=== PATIENT | female | born 1975 | race Hispanic/Latino ===

== ENCOUNTER 2023-03-21 17:03 | Emergency (ER) | payer BC ==
[~2023-03-21] VITALS: Ht 157.5 cm; Wt 81.6 kg
[2023-03-21 17:14] VITALS: O2SAT 100
[2023-03-21] MEDS ORDERED: KETOROLAC TROME10 MG PO (17:34)
[2023-03-21] MEDS ORDERED: METHOCARBAMOL500 MG PO (17:35)
== END 2023-03-21 17:45 | disposition home or self-care (01) ==
LOC: ER 17:21
DX: G44.209 Tension-type headache, unspecified, not intractable (principal); F17.210 Nicotine dependence, cigarettes, uncomplicated
CPT/HCPCS: 99282